=== PATIENT | male | born 1990 | race Two or more races ===

== ENCOUNTER 2022-04-21 02:10 | Emergency (ER) | payer OTHER ==
[~2022-04-21] VITALS: Ht 157.5 cm; Wt 64.4 kg
[2022-04-21] MEDS ORDERED: DICLOFENAC SODI75 MG PO (05:06)
== END 2022-04-21 05:12 | disposition home or self-care (01) ==
LOC: ER 02:10
DX: S22.42XA Multiple fractures of ribs, left side, initial encounter for closed fracture (principal); V29.99XA Rider (driver) (passenger) of other motorcycle injured in unspecified traffic accident, initial encounter; Y93.9 Activity, unspecified; Y92.9 Unspecified place or not applicable; Y99.9 Unspecified external cause status

== ENCOUNTER 2022-12-07 06:33 | Emergency (ER) | payer OTHER ==
[~2022-12-07] VITALS: Ht 172.7 cm; Wt 64.0 kg
[~2022-12-07 06:33] MED LIST: DICLOFENAC SODI75 MG PO
== END 2022-12-07 07:39 | disposition home or self-care (01) ==
LOC: ER 06:33
DX: L30.9 Dermatitis, unspecified (principal)

== ENCOUNTER 2023-11-11 02:46 | Emergency (ER) | payer OTHER ==
[~2023-11-11] VITALS: Ht 167.6 cm; Wt 68.0 kg
[2023-11-11] MEDS ORDERED: 0.9 % SODIUM CHLORIDE 1,000 ML IV STA (03:21)
[2023-11-11] MEDS ORDERED: INSULIN REGULAR, HUMAN 1,000 UNIT/10 ML UNITS SUBCUTANEO STA (03:23)
[2023-11-11 03:55] LABS: HEMATOCRIT 46.1 % (39.0-48.0); HEMOGLOBIN 15.7 g/dL (13-16.00); MEAN CORPUSCULAR HEMOGLOBIN 30.1 pg (27.00-32.0); MEAN CORPUSCULAR HGB CONC 34.1 g/dl (32.0-36.0); PLATELET COUNT 276 K/uL (150-450); RED BLOOD COUNT 5.24 M/uL (4.00-6.00); RED CELL DISTRIBUTION WIDTH 13.7 % (11.5-14.5)
[2023-11-11 04:16] LABS: BILIRUBIN TOTAL 0.97 mg/dL (0.3-1.2); CALCIUM 9.5 mg/dL (8.5-10.1); CREATININE SERUM 1.06 mg/dL (0.70-1.30); GFR 80.96; GLOBULINA 4.3 G/DL (2.4-3.5); POTASSIUM 4.76 mEq/L (3.5-5.1); TOTAL PROTEIN 8.3 gm/dL (6.4-8.2)
[2023-11-11 05:17] LABS: ABG PH 7.359 (7.35-7.45); ABG PO2 108.6 mmHg (80-100); ABG pCO2 27.4 mmHg (35-45); BASE EXCESS -8.6 mmol/l; BICARBONATE 15.1 mmol/l (23-25); SaO2 97.8 %; Tco2 15.9 mmol/l; o2 21 %
[2023-11-11 05:18] LABS: allen test SATISFACTORY; puncture site RADIAL LEFT
[2023-11-11 05:37] LABS: URINE APPEARANCE Clear; URINE BILIRRUBIN Negative (NEGATIVE); URINE BLOOD Negative; URINE COLOR Yellow; URINE LEUKOCYTE Negative; URINE NITRATE Negative; URINE PROTEIN Negative (NEGATIVE); URINE UROBILINOGEN 0.2 E.U./dl
[2023-11-11 05:41] LABS: URINE EPITHELIAL CELLS 1.6 uL (0.0-38.8)
[2023-11-11 05:52] LABS: URINE GLUCOSE >=1000 MG/DL (NEGATIVE); URINE KETONE >=160 (NEGATIVE); URINE RBC 0.6 uL (0.0-20.8)
== END 2023-11-11 07:31 | disposition home or self-care (01) ==
LOC: ER 02:47
DX: E11.65 Type 2 diabetes mellitus with hyperglycemia (principal)